=== PATIENT | female | born 1970 | race Caucasian/White ===

== ENCOUNTER 2016-06-15 18:03 | Emergency (ER) | payer OTHER ==
--- NOTE | 2016-06-15 18:12 | ER Document Report ---
ED Medical Screen (RME) - General Stated Complaint: BODY PAIN Time seen by provider: 18:10 Mode of Arrival: Wheelchair Information source: Patient Notes: 46 showed female that has been sick since with diarrhea. She started vomiting Friday. She has generalized bodyaches especially behind both of her eyes and her back. She ran a fever of 100. 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 She does have a head congestion and a mild cough today. - Related Data Allergies/Adverse Reactions: No Known Allergies Allergy (Verified 06/15/16 18:51) Past Medical History - Past Medical History Cardiac Medical History: Reports: Hx Hypertension Psychiatric Medical History: Reports: Hx Anxiety
[2016-06-15 19:36] LABS: APPEARANCE,URINE CLEAR; BILIRUBIN,URINE NEGATIVE (NEGATIVE); GLUCOSE, URINE NEGATIVE (NEGATIVE); KETONES,URINE NEGATIVE (NEGATIVE); LEUKOCYTE ESTERASE,URINE SMALL (NEGATIVE); NITRITE,URINE NEGATIVE (NEGATIVE); PROTEIN,URINE NEGATIVE (NEGATIVE); UROBILINOGEN,URINE NEGATIVE mg/dL (<2.0)
[2016-06-15] MEDS ORDERED: ONDANSETRON ODT 4 MG TAB (6 TAB/DSPK) PO PRN (20:41)
[2016-06-15] MEDS ORDERED: IBUPROFEN 800 MG TABLET PO ONE (20:41)
--- NOTE | 2016-06-15 20:44 | ER Document Report ---
ED General - General Chief Complaint: Pain All Over Stated Complaint: BODY PAIN Mode of Arrival: Wheelchair Notes: Patient is a 46-year-old female without past medical history who presents with 2 days of vomiting, diarrhea and cough. States that multiple contacts have had similar symptoms. She has been trying [id number] medications with moderate improvement of her symptoms. Nothing worsens her symptoms. She denies any limited range of motion of the neck or headache but does note that she has had some mild neck pain. Denies any weakness, numbness or confusion. She has not had any recorded fever at home. She has been able to tolerate oral intake all throughout the day today without any further episodes of vomiting. She has not spoken to her primary care physician regarding today's concerns. She denies a history of similar symptoms in the past. TRAVEL OUTSIDE OF THE [place] IN LAST 30 DAYS: No - Related Data Allergies/Adverse Reactions: No Known Allergies Allergy (Verified 06/15/16 18:51) Past Medical History - General Information source: Patient - Social History Smoking Status: Current Every Day Smoker Chew tobacco use (# tins/day): No Frequency of alcohol use: None Drug Abuse: None Lives with: Spouse/Significant other Family History: Reviewed & Not Pertinent Patient has suicidal ideation: No Patient has homicidal ideation: No - Past Medical History Cardiac Medical History: Reports: Hx Hypertension Renal/ Medical History: Denies: Hx Peritoneal Dialysis Psychiatric Medical History: Reports: Hx Anxiety Review of Systems - Review of Systems Notes: Constitutional: Negative for fever. HENT: Negative for sore throat. Eyes: Negative for visual changes. Cardiovascular: Negative for chest pain. Respiratory: Positive for shortness of breath. Gastrointestinal: Negative for abdominal pain, positive for vomiting and diarrhea. Genitourinary: Negative for dysuria. Musculoskeletal: Negative for back pain. Skin: Negative for rash. Neurological: Negative for headaches, weakness or numbness. 10 point ROS negative except as marked above and in HPI. Physical Exam - Vital signs Vitals: Temp Pulse Resp BP Pulse Ox 99.9 F 71 20 141/87 H 98 06/15/16 18:51 06/15/16 18:51 06/15/16 18:51 06/15/16 18:51 06/15/16 18:51 Interpretation: Hypertensive Notes: PHYSICAL EXAMINATION: GENERAL: Well-appearing, well-nourished and in no acute distress. HEAD: Atraumatic, normocephalic. EYES: Pupils equal round and reactive to light, extraocular movements intact, sclera anicteric, conjunctiva are normal. ENT: nares patent, oropharynx clear without exudates. Moist mucous membranes. NECK: Normal range of motion, supple without lymphadenopathy, full neck range of motion, no meningismus LUNGS: Breath sounds clear to auscultation bilaterally and equal. No wheezes rales or rhonchi. HEART: Regular rate and rhythm without murmurs ABDOMEN: Soft, nontender, normoactive bowel sounds. No guarding, no rebound. No masses appreciated. EXTREMITIES: Normal range of motion, no pitting or edema. No cyanosis. NEUROLOGICAL: No focal neurological deficits. Moves all extremities spontaneously and on command. PSYCH: Normal mood, normal affect. SKIN: Warm, Dry, normal turgor, no rashes or lesions noted. Course - Re-evaluation Re-evalutation: 06/15/16 20:40 Presentation is most consistent with a viral illness with associated nausea, vomiting, diarrhea and cough. Patient is overall well appearance, vitals within normal limits, well-hydrated. Patient denies any headache and has no evidence of meningismus on examination. Lungs are clear bilaterally. No evidence of respiratory distress. Based on clinical exam and history, I do not suspect an acute pneumonia, meningitis, strep pharyngitis, or an acute encephalitis. No laboratory or imaging testing is indicated at this time. 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 At this time will discharge with return precautions and follow-up recommendations. Verbal discharge instructions given a the bedside and opportunity for questions given. Medication warnings reviewed. Patient is in agreement with this plan and has verbalized understanding of return precautions and the need for primary care follow-up in the next 24-72 hours. - Vital Signs Vital signs: Temp Pulse Resp BP Pulse Ox 98.7 F 68 20 135/79 H 99 06/15/16 20:50 06/15/16 20:50 06/15/16 20:50 06/15/16 20:50 06/15/16 20:50 - Laboratory Laboratory results interpreted by me: 06/15/16 19:07 Urine Blood SMALL H Ur Leukocyte Esterase SMALL H Urine Ascorbic Acid 20 H Discharge - Discharge Clinical Impression: Vomiting and diarrhea, Cough Condition: Good Disposition: HOME, SELF-CARE Additional Instructions: Your symptoms are most likely due to a viral infection it should resolve over the next 7-14 days. Take the Zofran that your sent home with as needed for nausea. For body aches take ibuprofen 800 mg every 6 hours as needed. Please be sure to drink plenty of fluids and get rest. Return to the emergency department if you began having difficulty breathing, chest pain, persistent vomiting, become confused, have worsening neck or head pain, or any other symptoms that are concerning to you. Follow-up with your primary doctor in the next 2-3 days. Forms: Elevated Blood Pressure
[2016-06-15 21:39] VITALS: BP 135/79
== END 2016-06-15 20:52 | disposition home or self-care (01) ==
LOC: ER 18:03
DX: R11.10 Vomiting, unspecified (principal); R19.7 Diarrhea, unspecified; R05 Cough; R06.02 Shortness of breath; M79.1 Myalgia; F17.200 Nicotine dependence, unspecified, uncomplicated; I10 Essential (primary) hypertension
CPT/HCPCS: 81001; 87086; 99283

== ENCOUNTER 2017-02-19 18:41 | Emergency (ER) | payer SELFPAY ==
[2017-02-19 19:40] VITALS: BP 171/113
[2017-02-19] MEDS ORDERED: LISINOPRIL 10 MG TABLET PO ONE (19:40)
--- NOTE | 2017-02-19 19:47 | ER Document Report ---
ED General - General Chief Complaint: Blood Pressure Problem Stated Complaint: BLOOD PRESSURE ISSUES Time Seen by Provider: 02/19/17 19:38 TRAVEL OUTSIDE OF THE [place] IN LAST 30 DAYS: No - HPI Notes: Patient is a 46-year-old female with a history of hypertension, anxiety, and depression presents the ED complaining of elevated blood pressure times a couple months. Patient states that she does take lisinopril 10 mg once daily, but orders her medications from [facility] and she has no insurance. Pt states that she is a former smoker who quit about 8mos ago. Pt states that she has been taking a 40mg tab of lisinopril and cutting into 1/4's. Pt last took her medication last evening. She does not check her BP on a daily basis. Pt was just concerned because of the continued high blood pressure reading, but otherwise feels "fine." Pt states that she does have occ numbness/tingling to her b/l hands R>L for months that is worse with activity and at nighttime. The numbness is in the distribution of the median nerve (digits 1-3.5). She is still eating and drinking with no difficulties. She is having normal BM's and normal urinations. No h/o CVA, PA, PE, dissection, kidney disease, DM, CA, hormone replacement, or CAD. Denies any headache, fever, neck pain, changes in vision/speech/mentation/hearing, URI, sore throat, chest pain, palpitations, syncope, cough, shortness of breath, wheeze, dyspnea, BRADLEY, PND, abdominal pain, nausea/vomiting/diarrhea, urinary retention, dysuria, hematuria, loss of control of bowel or bladder, muscle paralysis/weakness, or rash. No SI/HI. No hallucinations. - Related Data Allergies/Adverse Reactions: No Known Allergies Allergy (Verified 02/19/17 18:47) Past Medical History - Social History Smoking Status: Former Smoker Chew tobacco use (# tins/day): No Frequency of alcohol use: None Drug Abuse: None Family History: Reviewed & Not Pertinent - Past Medical History Cardiac Medical History: Reports: Hx Hypertension Renal/ Medical History: Denies: Hx Peritoneal Dialysis Psychiatric Medical History: Reports: Hx Anxiety - Immunizations Hx Diphtheria, Pertussis, Tetanus Vaccination: No Review of Systems - Review of Systems Notes: REVIEW OF SYSTEMS: CONSTITUTIONAL : Denies fever, chills, or sweats. Denies recent illness. EENT: Denies eye, ear, throat, or mouth pain or symptoms. Denies nasal or sinus congestion or discharge. Denies throat, tongue, or mouth swelling or difficulty swallowing. CARDIOVASCULAR: Denies chest pain. Denies palpitations or racing or irregular heart beat. Denies ankle edema. RESPIRATORY: Denies cough, cold, or chest congestion. Denies shortness of breath, difficulty breathing, or wheezing. GASTROINTESTINAL: Denies abdominal pain or distention. Denies nausea, vomiting , or diarrhea. Denies blood in vomitus, stools, or per rectum. Denies black, tarry stools. Denies constipation. GENITOURINARY: Denies difficulty urinating, painful urination, burning, frequency, blood in urine, or discharge. MUSCULOSKELETAL: Denies back or neck pain or stiffness. Denies joint pain or swelling. SKIN: Denies rash, lesions or sores. NEUROLOGICAL: Denies confusion or altered mental status. Denies passing out or loss of consciousness. Denies dizziness or lightheadedness. Denies headache. Denies weakness or paralysis or loss of use of either side. Denies problems with gait or speech. PSYCHIATRIC: see hpi. ALL OTHER SYSTEMS REVIEWED AND NEGATIVE. Dictation was performed using [employer] voice recognition software Physical Exam - Vital signs Vitals: Temp Pulse Resp BP Pulse Ox 98.6 F 77 16 159/119 H 96 02/19/17 18:46 02/19/17 18:46 02/19/17 18:46 02/19/17 18:46 02/19/17 18:46 Notes: PHYSICAL EXAMINATION: GENERAL: Well-appearing, well-nourished and in no acute distress. A&Ox4 HEAD: Atraumatic, normocephalic. EYES: Pupils equal round and reactive to light, extraocular movements intact, sclera anicteric, conjunctiva are normal. NECK: Normal range of motion, supple without lymphadenopathy. Nontender. LUNGS: Breath sounds clear to auscultation bilaterally and equal. No wheezes rales or rhonchi. HEART: Regular rate and rhythm without murmurs, rubs, gallops. ABDOMEN: Soft, nontender, nondistended abdomen. No guarding, no rebound. No masses appreciated. Normal bowel sounds present. No CVA tenderness bilaterally. Musculoskeletal: FROM to passive/active. Strength 5+/5. + mild tinel/phalen rt wrist. Extremities: No cyanosis, clubbing, or edema b/l. Peripheral pulses 2+. Capillary refill less than 3 seconds. NEUROLOGICAL: Cranial nerves grossly intact. Normal speech, normal gait. Normal sensory, motor exams PSYCH: Normal mood, normal affect. SKIN: Warm, Dry, normal turgor, no rashes or lesions noted. Course - Re-evaluation Re-evalutation: 02/19/17 19:50 Patient is an afebrile, well-hydrated, 46-year-old female who presents the ED with an elevated blood pressure reading. Vitals are otherwise stable. PE otherwise unremarkable. According to the ACEP guidelines, no imaging or lab work is warranted for asymptomatic elevated blood pressure. Pt has no other cardiac history. I will increase her Lisinopril to 20mg daily, but advised that she may need to be on more than 1 HTN medication in the near future. Stressed the importance of having a PCM to monitor and guide treatment. Reviewed with patient that she may need further imaging and work up if the HTN is unresponsive to hiram inhibitors. Low suspicion/risk for any ACS, PE, pneumothorax, dissection, pericarditis, sepsis, CVA, endorgan damage, or other systemic emergent condition at this time. Patient is aware that her condition can change from initial presentation and she needs to monitor symptoms closely and seek medical attention with any acute changes. Recheck/establish with PCM this week. Return to the ED with any worsening/concerning symptoms otherwise as reviewed in discharge. Patient is in agreement. - Vital Signs Vital signs: Temp Pulse Resp BP Pulse Ox 98.6 F 77 16 159/119 H 96 02/19/17 18:46 02/19/17 18:46 02/19/17 18:46 02/19/17 18:46 02/19/17 18:46 Discharge - Discharge Clinical Impression: Elevated blood pressure reading Condition: Stable Disposition: HOME, SELF-CARE Instructions: High Blood Pressure ([facility]), Family Physicians / Practices Additional Instructions: Maintain adequate food and fluid intake Low-sodium diet Take medication as directed Monitor blood pressure 1-2 times per day and keep a log Recheck/establish with a PCM this week Consider consult with a rn women services Return to the ED with any worsening symptoms and/or development of fever, headache, changes in vision/hearing, chest pain, palpitations, syncope, shortness of breath, trouble breathing, abdominal pain, n/v/d, blood in stool/ urine, loss of control of bowel/bladder, urinary retention, muscle weakness/ paralysis, numbness/tingling, or other worsening symptoms that are concerning to you. Prescriptions: Lisinopril 20 mg PO DAILY #30 tablet Forms: Elevated Blood Pressure Referrals: [facility] [Provider Group] - Follow up as needed [facility] [Provider Group] - Follow up as needed [facility] [Provider Group] - Follow up as needed [facility] [Provider Group] - Follow up as needed
== END 2017-02-19 20:05 | disposition home or self-care (01) ==
LOC: ER 18:41
DX: I10 Essential (primary) hypertension (principal); T46.4X6A Underdosing of angiotensin-converting-enzyme inhibitors, initial encounter; Z91.128 Patient's intentional underdosing of medication regimen for other reason; Z91.14 Patient's other noncompliance with medication regimen; R20.0 Anesthesia of skin; R20.2 Paresthesia of skin; Z79.899 Other long term (current) drug therapy; Z87.891 Personal history of nicotine dependence
CPT/HCPCS: 99283

== ENCOUNTER 2018-07-10 19:32 | Emergency (ER) | payer SELFPAY ==
--- NOTE | 2018-07-10 20:23 | ER Document Report ---
ED Medical Screen (RME) - General Chief Complaint: Rib Pain Stated Complaint: LEFT SIDE PAIN Time Seen by Provider: 07/10/18 20:16 Mode of Arrival: Ambulatory Information source: Patient Notes: This is a 48-year-old female with a history of hypertension that presents to the emergency room with left chest wall pain associated with cough. Patient states that she was moving a hope chest and he kind of fell on her 2 weeks ago and she has had a left chest wall pain. She states since that time, the pain is increased and now she is developed a cough. Patient does have a history of hypertension and states she is due to take her medicines (lisinopril) soon. Patient denies any shortness of breath. Patient denies calf swelling or pain. TRAVEL OUTSIDE OF THE [place] IN LAST 30 DAYS: No - Related Data Allergies/Adverse Reactions: No Known Allergies Allergy (Verified 02/19/17 18:47) Past Medical History - Past Medical History Cardiac Medical History: Reports: Hx Hypertension Renal/ Medical History: Denies: Hx Peritoneal Dialysis Psychiatric Medical History: Reports: Hx Anxiety - Immunizations Hx Diphtheria, Pertussis, Tetanus Vaccination: No Physical Exam - Vital signs Vitals: Temp Pulse Resp BP Pulse Ox 98.7 F 66 20 159/103 H 100 07/10/18 20:14 07/10/18 20:14 07/10/18 20:14 07/10/18 20:14 07/10/18 20:14 Course - Vital Signs Vital signs: Temp Pulse Resp BP Pulse Ox 98.7 F 66 20 159/103 H 100 07/10/18 20:14 07/10/18 20:14 07/10/18 20:14 07/10/18 20:14 07/10/18 20:14
--- NOTE | 2018-07-10 21:03 | RADIOLOGY REPORT (SQ) ---
EXAM DESCRIPTION: XR CHEST 2 VIEWS COMPLETED DATE/TME: 07/10/2018 20:19 CLINICAL HISTORY: 48 years, Female, left chest wall pain, cough COMPARISON: None. NUMBER OF VIEWS: TECHNIQUE: LIMITATIONS: None. FINDINGS: No evidence of pulmonary infiltrate or pleural effusion. No gross evidence of rib fracture. The heart and mediastinum are unremarkable. Pulmonary vascularity appears normal. There is a thoracic dextroscoliosis. IMPRESSION: No acute finding. copyright 2010 [employer]- All Rights Reserved
[2018-07-10] MEDS ORDERED: LIDOCAINE 5% (700 MG) TRANSDERMAL ADH..PATCH TP ONE (21:54)
[2018-07-10] MEDS ORDERED: ACETAMINOPHEN 325 MG TABLET PO ONE (21:54)
[2018-07-10] MEDS ORDERED: BENZONATATE 100 MG CAPSULE PO ONE (21:54)
[2018-07-10] MEDS ORDERED: KETOROLAC TROMETHAMINE 60 MG/2 ML SDV IM ONE (21:54)
[2018-07-10] MEDS ORDERED: DEXAMETHASONE 4 MG TABLET PO ONE (21:55)
--- NOTE | 2018-07-10 21:57 | ER Document Report ---
ED General - General Chief Complaint: Rib Pain Stated Complaint: LEFT SIDE PAIN Time Seen by Provider: 07/10/18 20:16 Primary Care Provider: RICK MORALES FNP-C [Primary Care Provider] - Follow up in 3-5 days Mode of Arrival: Ambulatory Notes: Patient is a 48-year-old female with a past medical history of essential hypertension who presents with 2 weeks of left lower rib pain. Patient states that the pain started approximately 1 day after she tripped over a bag sitting on the ground while carrying a chest. She states it fell backwards landing onto her left lower rib space. She notes that since that time she has had a dull, aching, stabbing pain to the region worsened with movement. She states within the past 2 days she developed symptoms of a viral upper respiratory infection including nasal congestion, sore throat and a persistent cough. She states that since the onset of the cough the pain to the left lower ribs has significantly worsened each time she coughs. She has tried ibuprofen with moderate relief of her pain. She denies hemoptysis, shortness of breath, unilateral leg swelling, use of estrogen or syncope. Pain is quite tolerable as long as she is not cou ghing. She has not had fever. Has not seen her primary care physician regarding today's concerns. She does not smoke. TRAVEL OUTSIDE OF THE [place] IN LAST 30 DAYS: No - Related Data Allergies/Adverse Reactions: No Known Allergies Allergy (Verified 02/19/17 18:47) Past Medical History - General Information source: Patient - Social History Smoking Status: Former Smoker Frequency of alcohol use: None Drug Abuse: None Lives with: Family Family History: Reviewed & Not Pertinent Patient has suicidal ideation: No Patient has homicidal ideation: No - Past Medical History Cardiac Medical History: Reports: Hx Hypertension Renal/ Medical History: Denies: Hx Peritoneal Dialysis Psychiatric Medical History: Reports: Hx Anxiety Past Surgical History: Reports: Hx Gynecologic Surgery - LEEP, Hx Oral Surgery - wisdom teeth, Hx Orthopedic Surgery - right leg - Immunizations Hx Diphtheria, Pertussis, Tetanus Vaccination: No Review of Systems - Review of Systems Notes: Constitutional: Negative for fever. HENT: Negative for sore throat. Eyes: Negative for visual changes. Cardiovascular: Negative for chest pain. Respiratory: Negative for shortness of breath. Positive for cough Gastrointestinal: Negative for abdominal pain, vomiting or diarrhea. Genitourinary: Negative for dysuria. Musculoskeletal: Positive for left lower rib pain Skin: Negative for rash. Neurological: Negative for headaches, weakness or numbness. 10 point ROS negative except as marked above and in HPI. Physical Exam - Vital signs Vitals: Temp Pulse Resp BP Pulse Ox 98.7 F 66 20 159/103 H 100 07/10/18 20:14 07/10/18 20:14 07/10/18 20:14 07/10/18 20:14 07/10/18 20:14 Interpretation: Hypertensive Notes: PHYSICAL EXAMINATION: GENERAL: Appears moderately uncomfortable but in no acute distress HEAD: Atraumatic, normocephalic. EYES: Pupils equal round and reactive to light, extraocular movements intact, sclera anicteric, conjunctiva are normal. ENT: nares patent, oropharynx clear without exudates. Moist mucous membranes. NECK: Normal range of motion, supple without lymphadenopathy LUNGS: Breath sounds clear to auscultation bilaterally and equal. No wheezes rales or rhonchi. Chest wall: No bruising or deformity over the chest wall, mild pain on palpation of the left lower ribs HEART: Regular rate and rhythm without murmurs ABDOMEN: Soft, nontender, normoactive bowel sounds. No guarding, no rebound. No masses appreciated. EXTREMITIES: Normal range of motion, no pitting or edema. No cyanosis. NEUROLOGICAL: No focal neurological deficits. Moves all extremities spontaneously and on command. PSYCH: Normal mood, normal affect. SKIN: Warm, Dry, normal turgor, no rashes or lesions noted. Course - Re-evaluation Re-evalutation: 07/10/18 21:55 Patient presents after having a chest fall onto her left lower ribs 2 weeks ago having ongoing pain to the area since that time, now has developed what appears to be a picture of acute bronchitis with associated coughing that she notes is markedly worsened the pain when she coughs. No tachypnea or hypoxemia at time of arrival. Pain controlled here in the emergency department. Chest x-ray without evidence of acute fracture, pneumothorax or pulmonary contusion. In regards the patient's coughing: clinical history and exam most consistent with an acute viral bronchitis. Breath sounds are clear bilaterally. No fever. Patient does have additional signs of upper respiratory infection including nasal congestion, sore throat, and sinus pressure. Will treat single dose of dexamethasone, and Tessalon Perles. At this time will discharge with return precautions and follow-up recommendations. Verbal discharge instructions given a the bedside and opportunity for questions given. Medication warnings reviewed. Patient is in agreement with this plan and has verbalized understanding of ret urn precautions and the need for primary care follow-up in the next 24-72 hours. - Vital Signs Vital signs: Temp Pulse Resp BP Pulse Ox 98.7 F 71 18 151/93 H 98 07/10/18 22:14 07/10/18 22:14 07/10/18 22:14 07/10/18 22:14 07/10/18 22:14 - Diagnostic Test Radiology reviewed: Image reviewed, Reports reviewed Radiology results interpreted by me: 07/10/18 21:56 Chest x-ray: No acute infiltrate or rib fractures Discharge - Discharge Clinical Impression: Rib pain on left side, Bronchitis Condition: Good Disposition: HOME, SELF-CARE Additional Instructions: Your chest wall pain is due to bruising of your ribs. This pain can last for up to 6 weeks. It is very important that you continue to take purposeful deep breaths. For your pain: Continue to take ibuprofen 600 mg every 6 hours or Tylenol 1000 mg every 6 hours. Apply local lidocaine to the area per bottle instructions. There is a product sold [id number] called "Aspercreme with lidocaine" that you can use for this purpose. Please follow-up with your primary care doctor in the next 2-3 days. Return to the emergency department immediately if you develop worsening shortness of breath, increased pain, begin coughing blood, pass out, or have any other symptoms that are worrisome to you. You were seen for symptoms most consistent with bronchitis. This can take up to 12 weeks to fully resolve. This is generally due to a viral infection. Please follow-up with your primary doctor in the next 2-3 days. Return if you develop worsening cough, vomiting, fever >100.4, pass out, begin coughing blood, or have any other symptoms that are concerning to you. Please use the medications prescribed today as directed. Prescriptions: Benzonatate [Tessalon Perles 100 mg Capsule] 100 mg PO Q8HP PRN #40 capsule PRN Reason: Referrals: RICK MORALES, LIMNOLOGIST-C [Primary Care Provider] - Follow up in 3-5 days
[2018-07-10 22:15] VITALS: BP 151/93
== END 2018-07-10 22:15 | disposition home or self-care (01) ==
LOC: ER 19:32
DX: J40 Bronchitis, not specified as acute or chronic (principal); R07.81 Pleurodynia; W20.8XXA Other cause of strike by thrown, projected or falling object, initial encounter; R09.81 Nasal congestion; J02.9 Acute pharyngitis, unspecified; I10 Essential (primary) hypertension; R05 Cough; Z87.891 Personal history of nicotine dependence
CPT/HCPCS: 99283; 96372; 71046; J1885